=== PATIENT | female | born 1935 ===

== ENCOUNTER 2017-02-04 21:28 | Emergency (ER) | payer MEDICARE ==
[2017-02-04 22:47] LABS: Hematocrit 38 % (35-47); Hemoglobin 13.2 g/dl (12.0-16.0); Mean Corpuscular HGB Conc 35 g/dl (31-36); Mean Corpuscular Hemoglobin 31 pg (27-31); Mean Corpuscular Volume 89 fL (80-97); Mean Platelet Volume 7 um3 (7.4-10.4); Red Blood Count 4.28 10^6/ul (4.0-5.4); Red Cell Distribution Width 13 % (10.5-15)
--- NOTE | 2017-02-04 22:49 | ED ---
Back Pain - HPI Summary HPI Summary: Pt here w/ pain between her shoulder blades. Reports she's had ALDEN pain higher than here before but never in this location. No recent injury or overuse to trigger pain. Also reports feeling lightheaded with leaning forward today and has had intermittent chest pain over the past few months on/off - no specific trigger. She denies SOB and admits she has a hiatal hernia which sometimes causes her pain in her upper ab/chest when she bends forward as it applies pressure to the area - difficult to say if sx she's having tonight are same or different. Denies numbness, tingling, weakness into arms/legs. Denies OTERO or recent URI sx, N/V/D. She has had 2 stents placed in her heart for CAD. Also reports she's been struggling with her 's behavioral changes w/ dementia - he is advancing to second stage which sometimes includes acting upset/mean and of 60+ years is not accustomed to this harsh behavior. She knows it's not really him but still catches her off guard and difficulty adjusting/coping. Increased fatigue as she's hypervigilent w/ and doesn't always hvae the heart to tell him she needs a nap or to go to bed early so she pushes through fatigue which makes it worse. Also reports she's not been eating/drinking well as her appetite has been low with worrying about her . Currently reports her mouth is dry and she'd like a drink of water. - History of Current Complaint Chief Complaint: EDBackInjuryPain Stated Complaint: BACK PAIN Time Seen by Provider: 02/04/17 22:00 Hx Obtained From: Patient Pain Intensity: 0 - Allergies/Home Medications Allergies/Adverse Reactions: Allergies Allergy/AdvReac Type Severity Reaction Status Date / Time Atenolol Allergy Rash Verified 05/29/14 07:50 Atorvastatin Allergy Unknown Verified 05/29/14 07:50 Reaction Details Codeine Allergy CONFUSION, Verified 05/29/14 07:50 SOB Gemfibrozil Allergy THROAT Verified 05/29/14 07:50 SWELLING Lisinopril Allergy Unknown Verified 05/29/14 07:50 Reaction Details Metformin Allergy Rash Verified 05/29/14 07:50 Niacin Allergy GI Upset Verified 05/29/14 07:50 Pioglitazone [From Actos] Allergy Rash Verified 05/29/14 07:50 Rosuvastatin [From Crestor] Allergy MUSCLE PAIN Verified 05/29/14 07:50 Sulfamethoxazole Allergy Unknown Verified 05/29/14 07:50 w/Trimethoprim Reaction [From Bactrim] Details PMH/Surg Hx/FS Hx/Imm Hx Previously Healthy: Yes Endocrine/Hematology History: Reports: Hx Diabetes - TYPE 2, CONTROLLED Cardiovascular History: Reports: Hx Angina - ON MEDS, CARDIAC STENT 2011, Hx Coronary Artery Disease, Hx Hypertension - ON MEDS Denies: Other Cardiovascular Problems/Disorders GI History: Reports: Hx Gastroesophageal Reflux Disease Denies: Other GI Disorders History: Reports: Other Problems/Disorders - HX PROLPASED BLADDER Sensory History: Reports: Hx Cataracts - KENDRICK, Hx Contacts or Glasses - GLASSES, Hx Glaucoma - RIGHT Denies: Hx Hearing Aid Opthamlomology History: Reports: Hx Cataracts - KENDRICK, Hx Contacts or Glasses - GLASSES, Hx Glaucoma - RIGHT Neurological History: Denies: Other Neuro Impairments/Disorders Psychiatric History: Reports: Hx Depression - ON MEDS - Surgical History Surgery Procedure, Year, and Place: CARDIAC STENTS, 2003, 2011. GALLBLADDER, 1959, [facility] [place]. PROLAPSED BLADDER 2001 AND 2002, [facility]. REMOVAL OF UTERUS Hx Anesthesia Reactions: No Infectious Disease History: No Infectious Disease History: Denies: Traveled Outside the [place] in Last 30 Days - Family History Known Family History: Positive: None - Social History Occupation: Retired Lives: With Family Alcohol Use: None Hx Substance Use: No Substance Use Type: Reports: None Hx Tobacco Use: No Smoking Status (MU): Never Smoked Tobacco Have You Smoked in the Last Year: No Review of Systems Constitutional: Negative Positive: Fatigue. Negative: Fever, Chills Eyes: Negative Negative: Photophobia, Blurred Vision, Diplopia, Drainage, Erythema ENT: Negative Negative: Epistaxis, Dental Pain, Sore Throat, Ear Ache, Nasal Discharge Cardiovascular: Other - thoracic back pain, intermittent chest pain which is "normal for her" over past few years Respiratory: Negative Negative: Shortness Of Breath, Cough Gastrointestinal: Negative Negative: Abdominal Pain, Vomiting, Diarrhea, Nausea Positive: no symptoms reported Musculoskeletal: Other - thoracic back pain Skin: Negative Negative: Headache, Weakness, Paresthesia, Numbness, Syncope, Slurred Speech Positive: Anxious All Other Systems Reviewed And Are Negative: Yes Physical Exam Triage Information Reviewed: Yes Vital Signs On Initial Exam: Initial Vitals Temp Pulse Resp BP Pulse Ox 97.2 F 68 18 156/76 95 02/04/17 21:31 02/04/17 21:31 02/04/17 21:31 02/04/17 21:31 02/04/17 21:31 Vital Signs Reviewed: Yes Appearance: Positive: Well-Appearing, No Pain Distress - concerned but calm and cooperative, Well-Nourished Skin: Positive: Warm, Dry - no erythema, no ecchymosis over affected area Head/Face: Positive: Normal Head/Face Inspection Eyes: Positive: Normal, EOMI, IVON, Conjunctiva Clear ENT: Positive: Hearing grossly normal, Pharynx normal - oral mucosa dry, TMs normal. Negative: Nasal congestion, Nasal drainage, Trismus, Muffled voice Dental: Negative: Abscess @ Neck: Positive: Supple, Nontender, No Lymphadenopathy Respiratory/Lung Sounds: Positive: Clear to Auscultation, Breath Sounds Present. Negative: Decreased Breath Sounds, Rales, Rhonchi, Subcutaneous Emphysema, Stridor, Tracheal Deviation, Wheezes, Unable to speak in full sentences Cardiovascular: Positive: Normal, RRR, Pulses are Symmetrical in both Upper and Lower Extremities, S1, S2. Negative: Murmur, Rub, Leg Edema Left, Leg Edema Right Abdomen Description: Positive: Nontender, No Organomegaly, Soft Bowel Sounds: Positive: Present Musculoskeletal: Positive: Normal, Strength/ROM Intact - cannot reproduce pain by palpating paracervical thoracic mm; pt does have Lt sided trapezius pain w/ movement Neurological: Positive: Normal, Sensory/Motor Intact, Alert, Oriented to Person Place, Time, CN Intact II-III Psychiatric: Positive: Normal - hyperverbal which may be sign of anxiety -no SI/ HI- well kept and clear thoughts, good insight Diagnostics - Vital Signs Vital Signs Temp Pulse Resp BP Pulse Ox 02/04/17 21:31 97.2 F 68 18 156/76 95 - Laboratory Result Diagrams: 02/04/17 22:31 02/04/17 22:31 Lab Statement: Any lab studies that have been ordered have been reviewed, and results considered in the medical decision making process. Back Pain Course/Dx - Course Course Of Treatment: 81y.o. female w/ DM and h/o CAD w/ stents presents w/ new onset thoracic back pain. although her other sx of chest pain and lightheadedness are not new, a cardiac w/u was initiated. ECG, CTA and labs are neg for acute cardiopulm pathology. After much discussion, it was obvious pt is quite anxious, run down and overwhelmed by her change for the worse w/ his dementia. She agrees she needs to eat/drink more as well as rest and take breaks from his care to achieve and maintain better health for herself. She does have risk factors for CV pathology and so close f/u w/ PCP is advised as she may benefit from a stress test, etc. Also discussed danger s/sx of when to return to ED - pt agrees w/ plan. - Diagnoses Provider Diagnoses: Thoracic back pain - Provider Notifications Discussed Care Of Patient With: Adalberto Cuenca Discharge - Discharge Plan Condition: Stable Disposition: HOME Patient Education Materials: Thoracic Pain (ED) Referrals: Adalgisa Faustin MD [Primary Care Provider] - Additional Instructions: The cause of your back pain tonight was not caused by life threatening causes based on tests performed. It is suspected this was from a culmination of stress , anxiety and muscle tightness due to dehydration/poor nutrition intake. It is advised that you take time to eat at least 3 balanced meals a day or 4-5 small meals/snacks throughout the day with fluids to stay nourished and hydrated. It is also important that you rest when you are tired. Please discuss respite care with your PCP and family. Call your PCP Tuesday to schedule an appointment next week - you may benefit from further cardiac workup outpatient - discuss with PCP. If pain returns, you may try acetaminophen 650mg for pain. You may also consider gentle massage therapy. Avoid ibuprofen as this may cause your blood pressure medication to become inactive. You may also try ice/heat/gentle stretches and/or topical pain patch as needed (ie. salonpas - an over the counter product). *If in the meantime you develop return of pain that is intractable, chest pain, shortness of breath, fatigue, dizziness or syncope, return to ED.
[2017-02-04 22:59] LABS: Albumin 4.1 g/dL (3.2-5.2); BUN/Creatinine Ratio 21.3 (8-20); Calcium 9.8 mg/dL (8.6-10.3); EGFR African American 78.5 (>60); Magnesium 1.6 mg/dL (1.9-2.7); Potassium 3.8 mmol/L (3.5-5.0); Total Bilirubin 0.3 mg/dL (0.2-1.0); Total Protein 7.1 g/dL (6.4-8.9)
[2017-02-04 23:01] LABS: Troponin I 0.01 ng/mL (<0.04)
[2017-02-04] MEDS ORDERED: Iohexol 350* (CONTRAST) 500 ML MDV IV ONE (23:02)
[2017-02-04] MEDS ORDERED: Magnesium Oxide TAB* 400 MG PO ONE (23:23)
[2017-02-04 23:38] LABS: TSH (Thyroid Stimulating Horm) 2.84 mcIU/mL (0.34-5.60)
[2017-02-04] MEDS ORDERED: Iodixanol 320 (CONTRAST) 100 ML SDV IV ONE (23:44)
[2017-02-05] MEDS ORDERED: Magnesium Oxide TAB* 400 MG PO ONE (01:56)
[2017-02-05 04:22] VITALS: BP 122/57
--- NOTE | 2017-02-05 08:38 | RAD ---
Indication: Chest and back pain with widened mediastinum. Contrast: Administered 100.1 ml of VISAPAQUE 320 mg/ml CTA of the chest, abdomen and pelvis was performed after administration. Coronal and sagittal reconstructed images were obtained. The carotid arteries are unremarkable. Inferior thyroid lobes are unremarkable origins of the great vessels are unremarkable. No evidence of a aneurysmal dilatation of the descending or descending thoracic aorta is noted. No evidence of aortic dissection is noted. The descending thoracic aorta demonstrates mild atherosclerosis. Celiac axis, SMA and renal arteries are unremarkable. No evidence of aneurysmal dilatation is noted. Common iliac and external iliac arteries are unremarkable. Evaluation of the pulmonary arteries demonstrates no definite filling defects to suggest pulmonary embolus. The heart is mildly enlarged without evidence of pericardial effusion. There is no mediastinal or hilar adenopathy noted. The heart demonstrates no pericardial effusion. The trachea and major bronchi appear patent. No evidence of alveolar consolidation is noted. No pleural fluid is identified. Scarring is noted in the lateral lingula. No pleural fluid is identified. No pneumothorax is noted. The axilla demonstrates no evidence of abnormal adenopathy. The liver were visualized is unremarkable although phase of contrast injection is arterial only. This limits evaluation. Spleen is normal in size. Pancreas demonstrates no mass or pancreatic duct dilatation. Prominent common duct likely due to cholecystectomy state. No adrenal masses are noted. The kidneys demonstrates no hydronephrosis. No retroperitoneal lymphadenopathy is noted. There is a right-sided inguinal hernia containing omentum and likely appendix. No evidence of appendicitis is noted currently. No free fluid is identified. Patient status post hysterectomy. IMPRESSION: No evidence of thoracic aortic aneurysm or aortic dissection. No other masses or fluid collections are identified. Degenerative changes of the thoracic and lumbar spine are noted. Right inguinal hernia containing fat and likely appendix. Evaluation of the liver is limited due to phase of injection.
--- NOTE | 2017-02-05 09:09 | RAD ---
Indication: Chest pain. Single frontal view of the chest performed at 2248 hours was reviewed. Comparison is made with previous exam dated November 04, 2003. No mediastinal shift is noted. Heart is of normal size and configuration. Lung bundy appear clear. Hyperinflated lung bundy are noted. IMPRESSION: NO ACTIVE CARDIOPULMONARY DISEASE IS NOTED.
== END 2017-02-05 04:21 | disposition home or self-care (01) ==
LOC: ED 21:28
DX: M54.6 Pain in thoracic spine (principal); E11.9 Type 2 diabetes mellitus without complications; I25.10 Atherosclerotic heart disease of native coronary artery without angina pectoris; Z95.5 Presence of coronary angioplasty implant and graft; Z88.5 Allergy status to narcotic agent; Z88.8 Allergy status to other drugs, medicaments and biological substances; Z88.2 Allergy status to sulfonamides
CPT/HCPCS: 36415; 71010; 71275; 74174; 80053; 83605; 83735; 84443; 84484; 85025; 85379; 85610; 85730; 93005; 99283; Q9967

== ENCOUNTER 2021-11-02 07:07 | Observation (INO) ==
[2021-11-02 07:35] LABS: ABS Eosinophils 0.2 10^3/ul (0-0.6); ABS Monocytes 0.5 10^3/ul (0-0.8); ABS Neutrophils 5.4 10^3/ul (1.5-7.7); Eosinophil % 3.3 %; Hematocrit 38 % (35-47); Hemoglobin 13.2 g/dL (12.0-16.0); Lymphocyte % 13.4 %; Mean Corpuscular HGB Conc 34 g/dL (31-36); Mean Corpuscular Hemoglobin 30 pg (27-31); Mean Corpuscular Volume 87 fL (80-97); Mean Platelet Volume 7.4 fL (7.4-10.4); Platelet Count 249 10^3/uL (150-450); Red Cell Distribution Width 14 % (10-15); White Blood Count 7.1 10^3/uL (3.5-10.8)
[2021-11-02 07:58] LABS: INR 1.04 (0.89-1.11)
[2021-11-02 08:26] LABS: Albumin/Globulin Ratio 1.5 (1-3); Calcium 9.6 mg/dL (8.6-10.3); Globulin 2.6 g/dL (2-4); Magnesium 1.7 mg/dL (1.9-2.7); Potassium 3.8 mmol/L (3.5-5.0); Total Bilirubin 0.7 mg/dL (0.2-1.0); Total Protein 6.6 g/dL (6.4-8.9); eGFR CKD-EPI 71.1 (>60)
[2021-11-02 08:45] LABS: High Sensitivity Troponin 1 Hr 7 pg/mL (<15)
[2021-11-02] MEDS ORDERED: Dextrose 50% Syringe 50 ml 25 GM/50 ML SYRINGE IV PUSH PRN (12:14)
[2021-11-02] MEDS: Enoxaparin 40 MG/0.4 ML SYR SUBCUT SCH (18:39)
[2021-11-03] MEDS ORDERED: Regadenoson 0.4 MG/5 ML SYRINGE ONE (12:28)
[2021-11-03] MEDS: Enoxaparin 40 MG/0.4 ML SYR SUBCUT SCH (14:04)
[2021-11-03 15:09] LABS: HDL Cholesterol 45.4 mg/dL
[2021-11-03 18:37] VITALS: BP 144/54
== END 2021-11-03 17:00 | disposition home or self-care (01) ==
LOC: ED 07:07 → EDHOLD 07:07 → SUATTDRO 10:43 → EDHOLD 17:04 → MEDTELE 18:02
PROVIDERS: ADMIT Internal Medicine; ATTEND Internal Medicine

== ENCOUNTER 2023-08-31 11:13 | Inpatient (IN) ==
[2023-08-31] MEDS: Acetaminophen IV 1 GM/100ML 1,000 MG/100 ML BAG IV ONE (12:14)
[2023-08-31] MEDS: Morphine 4 MG/ML VIAL (1 ml) IV ONE (12:14)
[2023-08-31 12:21] LABS: ABS Basophils 0.1 10^3/uL (0.0-0.1); ABS Eosinophils 0.1 10^3/uL (0.0-0.5); ABS Lymphocytes 0.8 10^3/uL (1.0-4.8); ABS Monocytes 0.9 10^3/uL (0.0-0.9); ABS Neutrophils 12.7 10^3/uL (1.5-7.6); ABS Nucleated RBC 0.01 10^3/ul; Eosinophil % 0.8 %; Hematocrit 44.9 % (35-45); Hemoglobin 14.9 g/dL (11.5-14.3); Lymphocyte % 5.7 %; Mean Corpuscular Hemoglobin 28.7 pg (27-33); Mean Corpuscular Hgb Conc 33.2 g/dL (31-36); Mean Corpuscular Volume 86.5 fL (80-97); Mean Platelet Volume 7.2 fL (7.5-11.2); Platelet Count 274 10^3/uL (150-450); Red Blood Count 5.19 10^6/uL (3.63-4.92); Red Cell Distribution Width 13.9 % (12-17); White Blood Count 14.6 10^3/uL (3.8-11.8)
[2023-08-31 12:53] LABS: Albumin 4.5 g/dL (3.2-5.2); Albumin/Globulin Ratio 1.5 (1-3); Calcium 9.4 mg/dL (8.6-10.3); Creatinine, Serum 0.89 mg/dL (0.51-0.95); Potassium 4.2 mmol/L (3.5-5.0); Total Bilirubin 0.5 mg/dL (0.2-1.0); Total Protein 7.5 g/dL (6.4-8.9); eGFR CKD-EPI 63.1 (>60)
[2023-08-31] MEDS ORDERED: Senna TAB 8.6 mg TAB PO PRN (15:22)
[2023-08-31] MEDS ORDERED: Polyethylene Glycol 3350 17 GM PACKET PO PRN (15:22)
[2023-08-31] MEDS ORDERED: Magnesium Hydroxide LIQ 30 ML UDC PO PRN (15:22)
[2023-08-31] MEDS: NS 0.9% 1000 ml BAG 1,000 ML IV SCH (16:08)
[2023-08-31] MEDS: Morphine 2 MG/ML SYRINGE IV PRN (16:08)
[2023-08-31] MEDS ORDERED: Dextrose 50% Syringe 50 ml 25 GM/50 ML SYRINGE IV PUSH PRN (19:13)
[2023-08-31] MEDS: Magnesium Hydroxide LIQ 30 ML UDC PO SCH (21:51)
[2023-08-31] MEDS: Enoxaparin 40 MG/0.4 ML SYR SUBCUT SCH (21:52)
[2023-09-01] MEDS: CMCS: Brimonidine P 0.15%(NF) OPH SOL 5 ML BTL RIGHT EYE SCH (01:47)
[2023-09-01] MEDS: Glycerin ADULT 2.4 gm SUPP PR ONE (03:27)
[2023-09-01] MEDS: Acetaminophen IV 1 GM/100ML 1,000 MG/100 ML BAG IV PRN (04:20)
[2023-09-01 06:09] LABS: ABS Lymphocytes 0.5 10^3/uL (1.0-4.8); ABS Monocytes 0.7 10^3/uL (0.0-0.9); ABS Neutrophils 11.1 10^3/uL (1.5-7.6); Eosinophil % 0.3 %; Hematocrit 44.2 % (35-45); Hemoglobin 15.1 g/dL (11.5-14.3); Lymphocyte % 3.9 %; Mean Corpuscular Hemoglobin 29.7 pg (27-33); Mean Corpuscular Hgb Conc 34.2 g/dL (31-36); Mean Corpuscular Volume 86.8 fL (80-97); Mean Platelet Volume 7.5 fL (7.5-11.2); Platelet Count 237 10^3/uL (150-450); Red Cell Distribution Width 13.7 % (12-17); White Blood Count 12.3 10^3/uL (3.8-11.8)
[2023-09-01 06:30] LABS: Calcium 8.6 mg/dL (8.6-10.3); Creatinine, Serum 0.61 mg/dL (0.51-0.95); Potassium 3.5 mmol/L (3.5-5.0)
[2023-09-01] MEDS: Aspirin EC 81 mg TAB.EC (enteric coated) PO SCH (08:31)
[2023-09-01] MEDS: Cholecalciferol (VIT D3) 1,000 unit TAB PO SCH (10:03)
[2023-09-01] MEDS: Isosorbide Mononit ER 30mg TAB PO SCH (10:03)
[2023-09-01] MEDS: Potassium Chlor 10 meq TAB PO SCH (10:04)
[2023-09-01] MEDS ORDERED: ceFAZolin 2 GM in NS PREMIX 2 GM/100 ML BAG IVPB ONE (13:41)
[2023-09-01] MEDS ORDERED: fentaNYL 100 mcg/2 ml 50 MCG/ML VIAL ONE (14:19)
[2023-09-01] MEDS ORDERED: ROPIVACAINE 5 MG/ML 30 ML BTL (0.5%) ONE (14:45)
[2023-09-01] MEDS ORDERED: Tranexamic Acid 1 GM/100ML BAG 2,000 MG/200 ML BAG IV ONE (15:56)
[2023-09-01] MEDS ORDERED: Dexamethasone IV 4 MG/ML VIAL 1 ml VIAL ONE (16:40)
[2023-09-01] MEDS ORDERED: Ondansetron 4 mg VIAL 2 MG/ML 2 ml VIAL ONE (16:40)
[2023-09-01] MEDS ORDERED: HYDROmorphone 1 MG/1 ML SYRINGE IV PRN (17:19)
[2023-09-01] MEDS ORDERED: fentaNYL 100 mcg/2 ml 50 MCG/ML VIAL IV PRN (17:19)
[2023-09-01] MEDS ORDERED: Naloxone 0.4 mg VIAL 0.4 mg/ml 1 ml VIAL IV PRN (17:19)
[2023-09-01] MEDS ORDERED: Ondansetron 4 mg VIAL 2 MG/ML 2 ml VIAL IV PRN (17:19)
[2023-09-01] MEDS ORDERED: Acetaminophen IV 1 GM/100ML 1,000 MG/100 ML BAG IV ONE (17:43)
[2023-09-01] MEDS: Lactated Ringers 1000 ml BAG 1,000 ML IV ONE (22:16)
[2023-09-01] MEDS: Metoclopramide 5 MG/ML VIAL (10 mg) IV SLOW PU ONE (22:23)
[2023-09-02] MEDS: ceFAZolin 1 GM in Dextrose 1 GM/50 ML BAG IVPB SCH (00:14)
[2023-09-02 07:57] LABS: Hematocrit 36.6 % (35-45); Hemoglobin 12.3 g/dL (11.5-14.3); Mean Corpuscular Hemoglobin 29.8 pg (27-33); Mean Corpuscular Hgb Conc 33.5 g/dL (31-36); Mean Corpuscular Volume 89.1 fL (80-97); Red Blood Count 4.11 10^6/uL (3.63-4.92); Red Cell Distribution Width 14.1 % (12-17)
[2023-09-02 08:41] LABS: ABS Lymphocytes 0.5 10^3/uL (1.0-4.8); ABS Monocytes 0.9 10^3/uL (0.0-0.9); ABS Neutrophils 8.6 10^3/uL (1.5-7.6); Mean Platelet Volume 7.5 fL (7.5-11.2); Platelet Count 225 10^3/uL (150-450)
[2023-09-02 08:53] LABS: Calcium 8.3 mg/dL (8.6-10.3); Creatinine, Serum 1.01 mg/dL (0.51-0.95); Magnesium 2.3 mg/dL (1.9-2.7); Potassium 4.4 mmol/L (3.5-5.0); eGFR CKD-EPI 54.2 (>60)
[2023-09-02] MEDS: NS 0.9% 500 ml BAG 500 ML IV ONE (10:43)
[2023-09-02] MEDS: Enoxaparin 30 MG/0.3 ML SYR SUBCUT SCH (13:46)
[2023-09-03 05:59] LABS: ABS Eosinophils 0.1 10^3/uL (0.0-0.5); ABS Lymphocytes 0.6 10^3/uL (1.0-4.8); ABS Monocytes 0.8 10^3/uL (0.0-0.9); ABS Neutrophils 4.9 10^3/uL (1.5-7.6); ABS Nucleated RBC 0.01 10^3/ul; Eosinophil % 1.3 %; Hematocrit 32.7 % (35-45); Hemoglobin 11.1 g/dL (11.5-14.3); Lymphocyte % 8.7 %; Mean Corpuscular Hemoglobin 29.5 pg (27-33); Mean Corpuscular Hgb Conc 33.9 g/dL (31-36); Mean Corpuscular Volume 87.2 fL (80-97); Mean Platelet Volume 7.4 fL (7.5-11.2); Nucleated Red Blood Cells % 0.1 %/100WBC (0.0-0.8); Platelet Count 205 10^3/uL (150-450); Red Blood Count 3.75 10^6/uL (3.63-4.92); Red Cell Distribution Width 14.3 % (12-17); White Blood Count 6.4 10^3/uL (3.8-11.8)
[2023-09-03 06:53] LABS: Creatinine, Serum 0.72 mg/dL (0.51-0.95); Potassium 3.7 mmol/L (3.5-5.0); eGFR CKD-EPI 81.4 (>60)
[2023-09-04 05:41] LABS: ABS Eosinophils 0.2 10^3/uL (0.0-0.5); ABS Lymphocytes 0.7 10^3/uL (1.0-4.8); ABS Monocytes 0.7 10^3/uL (0.0-0.9); ABS Neutrophils 4.5 10^3/uL (1.5-7.6); Eosinophil % 2.9 %; Hematocrit 33.1 % (35-45); Hemoglobin 11.3 g/dL (11.5-14.3); Lymphocyte % 11.2 %; Mean Corpuscular Hemoglobin 29.9 pg (27-33); Mean Corpuscular Hgb Conc 34.3 g/dL (31-36); Mean Corpuscular Volume 87.1 fL (80-97); Mean Platelet Volume 7.6 fL (7.5-11.2); Platelet Count 195 10^3/uL (150-450); Red Cell Distribution Width 14.5 % (12-17); White Blood Count 6.1 10^3/uL (3.8-11.8)
[2023-09-04 06:02] LABS: Calcium 8.3 mg/dL (8.6-10.3); Creatinine, Serum 0.57 mg/dL (0.51-0.95); Potassium 3.6 mmol/L (3.5-5.0); eGFR CKD-EPI 88.4 (>60)
[2023-09-06] MEDS: Fluticasone NASAL SPRAY 50MCG 16 gm SPRAY BTL BOTH NARES SCH (09:58)
[2023-09-06] MEDS: Empagliflozin 25 MG TAB PO SCH (12:38)
[2023-09-07 10:04] VITALS: BP 99/61
== END 2023-09-07 11:40 | DRG 522 ==
LOC: ED 11:13 → SUATTDRO 15:36 → EDHOLD 15:36 → SSU 23:34
PROVIDERS: ADMIT Hospitalist; ATTEND Internal Medicine